=== PATIENT | female | born 1985 | race Caucasian/White ===

== ENCOUNTER 2017-03-09 14:03 | Emergency (ER) | payer BC ==
--- NOTE | 2017-03-09 14:41 | EDM.PDOC ---
ED HPI GENERAL MEDICAL PROBLEM - General Chief Complaint: General Stated Complaint: FLU LIKE SYMPTOMS Time Seen by Provider: 03/09/17 14:39 Source of Information: Reports: Patient History Limitations: Reports: No Limitations - History of Present Illness INITIAL COMMENTS - FREE TEXT/NARRATIVE: HISTORY AND PHYSICAL: []31-year-old female presenting with cough, cold, fever, flu symptoms History of Present Illness: []Patient was shivering last night had sweats today coworkers daughter had influenza Review of Systems: As per history of present illness and below otherwise all systems reviewed and negative. Past medical history: As per history of present illness and as reviewed below otherwise noncontributory. Surgical history: As per history of present illness and as reviewed below otherwise noncontributory. Social history: No reported history of drug or alcohol abuse. Family history: As per history of present illness and as reviewed below otherwise noncontributory. Physical exam: HEENT: Atraumatic, normocehpalic, pupils reactive, negative for conjunctival pallor or scleral icterus, mucous membranes moist, throat clear, neck supple, nontender, trachea midline. Skin is hot and moist. Throat is red. no cervical adenopathy Lungs: Clear to auscultation, breath sounds equal bilaterally, chest non tender. Heart: S1S2, regular, negative for clicks, rubs, or JVD. Abdomen: Soft, nondistended, nontender. Negative for masses or hepatossplenmegaly. Negative for costovertebral tenderness. Pelvis: Stable nontender. Genitourinary: Deferred. Rectal: Deferred Extremities: Atraumatic, negative for cords or calf pain. Neurovascular unremarkable. Neuro: Awake, alert, oriented. Cranial nerves II through XII unremarkable. Cerebellum unremarkable. Motor and sensory unremarkable throughout. Exam nonfocal. Discussed with patient she is positive for influenza A Diagnostics: []Influenza Therapeutics: [] Impression: [ Influenza A] Plan: [ Discharged to home Tamiflu 75 mg twice a day Follow-up with your provider in 3 days] Definitive disposition and diagnosis as appropriate pending reevaluation and review of above. Onset: Sudden body aches Pain Score (Numeric/FACES): 7 - Related Data Allergies Allergy/AdvReac Type Severity Reaction Status Date / Time No Known Allergies Allergy Verified 03/09/17 14:18 Home Meds: Home Meds Vit No.78/Iron/Fa [Prenatabs FA] 1 tab PO DAILY 12/27/14 [History] Oseltamivir [Tamiflu] 75 mg PO BID #10 cap 03/09/17 [Rx] Past Medical History Other Endocrine/Metabolic History: Thyroid has been acting up...they are watching it - Infectious Disease History Infectious Disease History: Reports: Chicken Pox - Past Surgical History Other HEENT Surgeries/Procedures: [place] teeth extracted Other Female Surgeries/Procedures: Prior '2008 Social & Family History - Family History Family Medical History: Noncontributory - Tobacco Use Smoking Status *Q: Never Smoker Second Hand Smoke Exposure: No - Caffeine Use Caffeine Use: Reports: Coffee, Tea - Recreational Drug Use Recreational Drug Use: No Drug Use in Last 12 Months: No ED ROS GENERAL - Review of Systems Review Of Systems: ROS reveals no pertinent complaints other than HPI. ED EXAM, GENERAL - Physical Exam Exam: See Below (see dictation) Course - Vital Signs Last Recorded V/S: Last Vital Signs Temp 37.1 C 03/09/17 14:16 Pulse 131 H 03/09/17 14:16 Resp 20 03/09/17 14:16 BP 116/60 03/09/17 14:16 Pulse Ox 94 L 03/09/17 14:16 Departure - Departure Time of Disposition: 15:19 Disposition: Home, Self-Care 01 Condition: Good Clinical Impression: Influenza - Discharge Information Prescriptions: Oseltamivir [Tamiflu] 75 mg PO BID #10 cap Referrals: Feliz Alvarez MD [Primary Care Provider] - Forms: ED Department Discharge Additional Instructions: The following information is given to patients seen in the emergency department who are being discharged to home. This information is to outline your options for follow-up care. We provide all patients seen in our emergency department with a follow-up referral. The need for follow-up, as well as the timing and circumstances, are variable depending upon the specifics of your emergency department visit. If you don't have a primary care physician on staff, we will provide you with a referral. We always advise you to contact your personal physician following an emergency department visit to inform them of the circumstance of the visit and for follow-up with them and/or the need for any referrals to a consulting specialist. The emergency department will also refer you to a specialist when appropriate. This referral assures that you have the opportunity for followup care with a specialist. All of these measure are taken in an effort to provide you with optimal care, which includes your followup. Under all circumstances we always encourage you to contact your private physician who remains a resource for coordinating your care. When calling for followup care, please make the office aware that this follow-up is from your recent emergency room visit. If for any reason you are refused follow-up, please contact the [facility] emergency department at and asked to speak to the emergency department charge nurse. You have influenza a Tamiflu has been prescribed 3 your pharmacy [id number] medications for discomfort as discussed
[2017-03-09 15:39] VITALS: BP 124/75
== END 2017-03-09 15:37 | disposition home or self-care (01) ==
LOC: MW.ED 14:03
DX: J10.1 Influenza due to other identified influenza virus with other respiratory manifestations (principal)
CPT/HCPCS: 87804; 99283

== ENCOUNTER 2017-04-02 05:13 | Inpatient (IN) | payer BC ==
[2017-04-02] MEDS ORDERED: ceFAZolin 2 GM in Premix Bag 1 BAG IV ONE (05:26)
[2017-04-02] MEDS ORDERED: Sodium Chloride 0.9% 2.5 ML Syringe FLUSH PRN (05:26)
[2017-04-02] MEDS ORDERED: Sodium Chloride 0.9% 10 ML Syringe FLUSH PRN (05:26)
[2017-04-02] MEDS ORDERED: Lactated Ringers 1,000 ML IV SCH ×2 (05:30→09:00)
[2017-04-02] MEDS ORDERED: Oxytocin/0.9 % Sodium Chloride 30 UNIT/500 ML BAG IV SCH (05:30)
[2017-04-02] MEDS ORDERED: Citric Acid/Sodium Citrate Solution 30 ML Cup PO SCH (05:30)
--- NOTE | 2017-04-02 06:42 | PCM.PREANE ---
Preanesthetic Assessment - Anesthesia/Transfusion/Family Hx Anesthesia History: Prior Anesthesia Without Reaction Other Type of Anesthesia Reaction Comment: Denies any known problem in the past Family History of Anesthesia Reaction: No Transfusion History: No Prior Transfusion(s) Intubation History: Unknown - Review of Systems General: No Symptoms Pulmonary: No Symptoms Cardiovascular: No Symptoms Gastrointestinal: No Symptoms Neurological: No Symptoms Other: Reports: None - Physical Assessment Height: 1.57 m Weight: 117.027 kg ASA Class: 2 Mental Status: Alert & Oriented x3 Airway Class: Mallampati = 2 Dentition: Reports: Normal Dentition Thyro-Mental Finger Breadths: 3 Mouth Opening Finger Breadths: 3 ROM/Head Extension: Full Lungs: Clear to Auscultation, Normal Respiratory Effort Cardiovascular: Regular Rate, Regular Rhythm - Lab Values: Laboratory Last Values WBC 10.42 K/uL (4.0-11.0) 04/02/17 05:45 RBC 4.32 M/uL (4.30-5.90) 04/02/17 05:45 Hgb 11.1 g/dL (12.0-16.0) L 04/02/17 05:45 Hct 34.7 % (36.0-46.0) L 04/02/17 05:45 MCV 80.3 fL (80.0-98.0) 04/02/17 05:45 MCH 25.7 pg (27.0-32.0) L 04/02/17 05:45 MCHC 32.0 g/dL (31.0-37.0) 04/02/17 05:45 RDW Std Deviation 47.4 fl (28.0-62.0) 04/02/17 05:45 RDW Coeff of Virgilio 16 % (11.0-15.0) H 04/02/17 05:45 Plt Count 241 K/uL (150-400) 04/02/17 05:45 MPV 10.00 fL (7.40-12.00) 04/02/17 05:45 Nucleated RBC % 0.0 /100WBC 04/02/17 05:45 Nucleated RBCs # 0 K/uL 04/02/17 05:45 - Allergies Allergies/Adverse Reactions: Allergies Allergy/AdvReac Type Severity Reaction Status Date / Time No Known Allergies Allergy Verified 03/27/17 14:15 - Blood Blood Available: No - Anesthesia Plan Pre-Op Medication Ordered: None - Acknowledgements Anesthesia Type Planned: Spinal (general anesthesia back-up plan) Pt an Appropriate Candidate for the Planned Anesthesia: Yes Alternatives and Risks of Anesthesia Discussed w Pt/Guardian: Yes Pt/Guardian Understands and Agrees with Anesthesia Plan: Yes PreAnesthesia Questionnaire HEENT History: Reports: Other (See Below) Other HEENT History: wears glasses/contacts Genitourinary History: Reports: None [employer]ICER History: Reports: , Spontaneous Endocrine/Metabolic History: Reports: Obesity/BMI 30+ Other Endocrine/Metabolic History: Thyroid has been acting up...they are watching it - Infectious Disease History Infectious Disease History: Reports: Chicken Pox - Past Surgical History Head Surgeries/Procedures: Reports: None HEENT Surgical History: Reports: Oral Surgery Female Surgical History: Reports: Section (x2), D&C - SUBSTANCE USE Smoking Status *Q: Never Smoker Tobacco Use Within Last Twelve Months: No Other Tobacco Use Within Last Twelve Months: Smoked on & off for 1 yr, "years ago" Second Hand Smoke Exposure: No Recreational Drug Use History: No - HOME MEDS Home Medications: Home Meds Vit No.78/Iron/Fa [Prenatabs FA] 1 tab PO DAILY 12/27/14 [History] - CURRENT (IN HOUSE) MEDS Current Meds: Current Medications Citric Acid/Sodium Citrate (Bicitra Solution) 30 ml PO .ONCE ALONSO Last Admin: 04/02/17 06:05 Dose: 30 ml Lactated Ringer's (Ringers, Lactated) 1,000 mls @ 500 mls/hr IV .BOLUS ALONSO Last Admin: 04/02/17 05:47 Dose: 500 mls/hr Oxytocin/Sodium Chloride (Oxytocin 30 Unit/500 Ml-Ns) 30 unit in 500 mls @ 250 mls/hr IV TITRATE ALONSO Sodium Chloride (Saline Flush) 10 ml FLUSH ASDIRECTED PRN PRN Reason: Keep Vein Open Sodium Chloride (Saline Flush) 2.5 ml FLUSH ASDIRECTED PRN PRN Reason: Keep Vein Open Discontinued Medications Cefazolin Sodium/Dextrose 2 gm (/ Premix) 50 mls @ 100 mls/hr IV ONETIME ONE Stop: 04/02/17 05:55
[2017-04-02] MEDS ORDERED: ceFAZolin/Dextrose,Iso-Osmotic 2 GM/50 ML Duplex Bag IV ONE (07:20)
[2017-04-02] MEDS ORDERED: Morphine PF 1 MG/ML Amp ONE (07:21)
[2017-04-02] MEDS ORDERED: Oxytocin/0.9 % Sodium Chloride 30 UNIT/500 ML BAG ONE (07:33)
[2017-04-02] MEDS ORDERED: ePHEDrine 50 MG/ML SDV ONE ×2 (08:01→08:03)
[2017-04-02] MEDS ORDERED: Phenylephrine/Normal Saline 100 MCG/ML 10 ML Syringe ONE (08:09)
[2017-04-02] MEDS ORDERED: Ondansetron 4 MG/2 ML SDV ONE (08:23)
[2017-04-02] MEDS ORDERED: Octyl 2-Cyanoacrylate 1 Tube ONE (08:49)
[2017-04-02] MEDS ORDERED: Ondansetron 4 MG/2 ML SDV IV PRN (09:00)
[2017-04-02] MEDS ORDERED: Lanolin 100% Cream 7 GM Tube TOP PRN (09:00)
[2017-04-02] MEDS ORDERED: Bisacodyl 10 MG Supp RECTAL PRN (09:00)
[2017-04-02] MEDS ORDERED: Simethicone 80 MG Tab.Chew PO PRN (09:00)
[2017-04-02] MEDS ORDERED: Aluminum Hydroxide/Magnesium Hydroxide/Simethicone Susp 30 ML Cup PO PRN (09:00)
[2017-04-02] MEDS ORDERED: diphenhydrAMINE 50 MG/ML SDV IVPUSH PRN (09:00)
[2017-04-02] MEDS ORDERED: Acetaminophen/oxyCODONE 325-5 MG Tab PO PRN (09:11)
[2017-04-02] MEDS ORDERED: fentaNYL 100 MCG/2 ML SDV IVPUSH PRN (09:11)
--- NOTE | 2017-04-02 09:12 | PCM.OPNOTE ---
- General Post-Op/Procedure Note Date of Surgery/Procedure: 04/02/17 Operative Procedure(s): Repeat LTCS Findings: Term female APGARs 9, 9 weight 3490 gm. Intact placenta with 3V cord. Normal appearing pelvis Pre Op Diagnosis: 39 week IUP. Previous c section x 2-desires repeat Post-Op Diagnosis: Same Anesthesia Technique: Spinal Primary Surgeon: Vivian Potter Fluid Replacement, Intraop: 2,000 EBL in mLs: 500 Complications: None known Condition: Good Free Text/Narrative:: Dictation [id number]
[2017-04-02] MEDS ORDERED: Naloxone 0.4 MG/ML Syringe IVPUSH PRN (09:13)
[2017-04-02] MEDS: Ketorolac 30 MG/ML SDV IVPUSH SCH ×3 (09:28→21:07)
[2017-04-02] MEDS: Nalbuphine 10 MG/1 ML Vial IVPUSH PRN ×2 (09:41→15:06)
--- NOTE | 2017-04-02 09:48 | PCM.POSTAN ---
POST ANESTHESIA ASSESSMENT - MENTAL STATUS Mental Status: Alert, Oriented - RESPIRATORY Respiratory Status: Respiratory Rate WNL, Airway Patent, O2 Saturation Stable - CARDIOVASCULAR CV Status: Pulse Rate WNL, Blood Pressure Stable - GASTROINTESTINAL GI Status: No Symptoms - POST OP HYDRATION Hydration Status: Adequate & Stable
[2017-04-02] MEDS: Docusate Sodium 100 MG Cap PO SCH ×2 (11:01→21:07)
[2017-04-03] MEDS: Ketorolac 30 MG/ML SDV IVPUSH SCH ×2 (03:14→09:00)
--- NOTE | 2017-04-03 08:00 | PCM48HPAN ---
Post Anesthesia Note - EVALUATION WITHIN 48HRS OF ANESTHETIC Vital Signs in Normal Range: Yes Patient Participated in Evaluation: Yes Respiratory Function Stable: Yes Airway Patent: Yes Cardiovascular Function Stable: Yes Hydration Status Stable: Yes Pain Control Satisfactory: Yes Nausea and Vomiting Control Satisfactory: Yes Mental Status Recovered: Yes Resp Rate: 16
--- NOTE | 2017-04-03 08:14 | OR ---
SURGEON: Vivian Potter M.D. DATE OF PROCEDURE: 04/02/2017 PREOPERATIVE DIAGNOSES: 1. 39 week intrauterine . 2. Previous section x2, desires repeat. POSTOPERATIVE DIAGNOSES: 1. 39 week intrauterine . 2. Previous section x2, desires repeat. PROCEDURE: Repeat low-transverse section. ANESTHESIA: Spinal. ESTIMATED BLOOD LOSS: 500 mL. FLUIDS: 2000 mL of crystalloid. COMPLICATIONS: None known. FINDINGS: Term female, scores are 9 at 1 minute and 9 at 5 minutes, weight of 3490 g, intact placenta, 3-vessel cord. Normal-appearing pelvis overall. DISPOSITION: The patient to PACU. to nursery, stable. DESCRIPTION OF PROCEDURE: Rosalie is a 31-year-old G3, P2, at 39 weeks gestation, presents this morning for scheduled repeat delivery. Risks of the procedure have been discussed with her and proper consent was obtained. The patient was taken to the operating room, where she underwent spinal anesthetic, was placed in the dorsal supine position with leftward tilt, SCDs to lower extremities, Reyna to gravity. She was prepped and draped in usual sterile fashion. Anesthesia was tested and found to be adequate. After being prepped in the usual sterile fashion, anesthesia had been tested. Time-out was performed. A previous Pfannenstiel scar was excised, carried down to level of the rectus fascia, which was incised in midline and lateralized on either side sharply and bluntly. The superior aspect of fascia was tented up, dissected sharply and bluntly away from underlying muscle. In a similar fashion, this was performed on the inferior aspect of the fascia. The rectus muscles were in the midline sharply. Peritoneum was entered, and rectus muscle and peritoneum were lateralized bluntly. The uterine position and position now gently palpated. Self-retaining retractor was gently placed. Uterovesical reflection was visualized. There were some fairly significant blood vessels along the inferior aspect of the vesicular peritoneum. Bladder flap was created and mobilized the bladder away from the lower uterine segment. Low transverse hysterotomy was performed. Uterine cavity was entered with blunt end of scalpel. Hysterotomy was lateralized bluntly. Amniotomy was performed. Clear fluid was returned. Infant's head was delivered from the pelvis. Fundal pressure was applied. The 's head was delivered followed by anterior shoulder, posterior shoulder, and remainder of the body without difficulty. Nuchal cord x2 was reduced manually. The cord was clamped x2 and cut. The 's oropharynx and nares bulb suctioned. was handed off to attending nursing staff. Cord arterial, cord venous, cord blood sampling was obtained. The placenta was now delivered. Uterine cavity was cleared of all clot and debris. Hysterotomy was repaired using 0 Vicryl in continuous running locked fashion beginning laterally on either side in continuous running locked fashion followed by a re-imbricating layer of 0 Vicryl. Hemostasis appeared evident. Posterior aspect of the uterus inspected, no defects or hematomas found to be forming. Regions were well irrigated, suction dried. Uterus returned to abdominal cavity. Colonic gutters were cleared of all clot and debris, well irrigated, suction dried. Hysterotomy was again inspected and found to be hemostatic overall. Self-retaining retractor was gently removed. Bladder blade was placed. Hysterotomy was again inspected and found to be hemostatic. The rectus muscles were reapproximated using 0 Vicryl in inverted mattress suture technique. Anterior aspect of the muscle and posterior aspect of fascia closely inspected. Any areas of oozing were cauterized. The rectus fascia was now reapproximated using 0 Vicryl in continuous running fashion beginning laterally in the side and meeting in the midline. Subcutaneous tissue was well irrigated and suction dried. Any areas of oozing were cauterized. Deep subcutaneous tissue was repaired using 3-0 plain gut in a continuous running fashion. We irrigated the subcutaneous tissue one more time. Any areas of oozing once again cauterized. The skin edges were reapproximated using 3-0 Vicryl on a Darío needle in subcuticular fashion. Dermabond now gently placed. Uterus remained firm. Fundal massage had then performed. Sponge, instrument, needle counts were correct x2. The patient tolerated the procedure well overall. She will go to PACU in stable condition. The infant to nursery. FRANCI / SAMMY /[id number]
--- NOTE | 2017-04-03 08:30 | PCM.PNPP ---
- General Info Date of Service: 04/03/17 Functional Status: Reports: Pain Controlled, Tolerating Diet, Ambulating, Urinating - Review of Systems General: Denies: Fever, Weakness Pulmonary: Denies: Shortness of Breath Cardiovascular: Denies: Chest Pain, Palpitations, Lightheadedness Gastrointestinal: Reports: Flatus. Denies: Diarrhea, Nausea, Vomiting Genitourinary: Denies: Flank Pain Skin: Reports: No Symptoms - General Info Date of Service: 04/03/17 - Patient Data Vital Signs - Most Recent: Last Vital Signs Temp 37.1 C 04/03/17 03:00 Pulse 104 H 04/03/17 03:00 Resp 16 04/03/17 07:59 BP 109/57 L 04/03/17 03:00 Pulse Ox 97 04/03/17 06:09 Weight - Most Recent: 117.027 kg I&O - Last 24 Hours: Intake & Output 04/02/17 04/03/17 04/03/17 22:59 06:59 14:59 Intake Total 1621 Output Total 800 1450 Balance 821 -1450 Lab Results - Last 24 Hours: Laboratory Results - last 24 hr 04/02/17 04/02/17 04/03/17 Range/Units 08:28 10:00 05:15 Hgb 9.3 L (12.0-16.0) g/dL Hct 28.9 L (36.0-46.0) % Cord ABG pH 7.278 (7.18-7.38) Cord ABG Base Excess -4 (-10--2) Cord VBG pH 7.342 (7.25-7.45) Cord VBG Base Excess -6 (-10--2) Screen NEGATIVE (NEGATIVE) RhIG Candidate? YES Rhogam Indicated YES, BABY RH POS H Med Orders - Current: Current Medications Al Hydroxide/Mg Hydroxide (Mag-Al Plus) 30 ml PO Q8H PRN PRN Reason: Heartburn Bisacodyl (Dulcolax) 10 mg RECTAL .ONCE PRN PRN Reason: Constipation Citric Acid/Sodium Citrate (Bicitra Solution) 30 ml PO .ONCE ALONSO Last Admin: 04/02/17 06:05 Dose: 30 ml Diphenhydramine HCl (Benadryl) 25 mg IVPUSH Q6H PRN PRN Reason: Itching or Nausea Docusate Sodium (Colace) 100 mg PO BID [facility] Last Admin: 04/02/17 21:07 Dose: 100 mg Emollient Ointment (Lansinoh Hpa) 0 gm TOP ASDIRECTED PRN PRN Reason: Sore Nipples Fentanyl (Sublimaze) 50 mcg IVPUSH Q30M PRN PRN Reason: Pain (severe 7-10) Stop: 04/03/17 09:12 Lactated Ringer's (Ringers, Lactated) 1,000 mls @ 500 mls/hr IV .BOLUS [facility] Last Admin: 04/02/17 05:47 Dose: 500 mls/hr Oxytocin/Sodium Chloride (Oxytocin 30 Unit/500 Ml-Ns) 30 unit in 500 mls @ 250 mls/hr IV TITRATE [facility] Lactated Ringer's (Ringers, Lactated) 1,000 mls @ 125 mls/hr IV ASDIRECTED [facility] Last Admin: 04/02/17 10:15 Dose: 125 mls/hr Ibuprofen (Motrin) 800 mg PO Q8H PRN PRN Reason: mild pain or fever Ketorolac Tromethamine (Toradol) 30 mg IVPUSH Q6H [facility] Stop: 04/03/17 09:01 Last Admin: 04/03/17 03:14 Dose: 30 mg Nalbuphine HCl (Nubain) 2.5 mg IVPUSH Q3H PRN PRN Reason: Pruritis Stop: 04/03/17 09:14 Last Admin: 04/02/17 15:06 Dose: 2.5 mg Naloxone HCl (Narcan) 0.1 mg IVPUSH ONETIME PRN PRN Reason: RR< 6 WITH STIMULATION Stop: 04/03/17 09:14 Ondansetron HCl (Zofran) 4 mg IV Q4H PRN PRN Reason: Nausea/Vomiting Oxycodone/Acetaminophen (Percocet 325-5 Mg) 1 tab PO Q4H PRN PRN Reason: Pain (moderate 4-6) Oxycodone/Acetaminophen (Percocet 325-5 Mg) 2 tab PO Q4H PRN PRN Reason: Pain (moderate 4-6) Oxycodone/Acetaminophen (Percocet 325-5 Mg) 1 tab PO .Q4H PRN PRN Reason: Breakthrough Pain Stop: 04/03/17 09:11 Simethicone (Simethicone) 80 mg PO Q4H PRN PRN Reason: Gas Sodium Chloride (Saline Flush) 10 ml FLUSH ASDIRECTED PRN PRN Reason: Keep Vein Open Sodium Chloride (Saline Flush) 2.5 ml FLUSH ASDIRECTED PRN PRN Reason: Keep Vein Open Discontinued Medications Cefazolin Sodium/Dextrose (Ancef) Confirm Administered Dose 2 gm IV .STK-MED ONE Stop: 04/02/17 07:21 Ephedrine Sulfate (Ephedrine Sulfate) Confirm Administered Dose 50 mg .ROUTE .STK-MED ONE Stop: 04/02/17 08:02 Ephedrine Sulfate (Ephedrine Sulfate) Confirm Administered Dose 50 mg .ROUTE .STK-MED ONE Stop: 04/02/17 08:04 Cefazolin Sodium/Dextrose 2 gm (/ Premix) 50 mls @ 100 mls/hr IV ONETIME ONE Stop: 04/02/17 05:55 Last Admin: 04/02/17 09:24 Dose: Not Given Oxytocin/Sodium Chloride (Oxytocin 30 Unit/500 Ml-Ns) Confirm Administered Dose 30 unit in 500 mls @ as directed .ROUTE .STK-MED ONE Stop: 04/02/17 07:34 Last Admin: 04/02/17 09:25 Dose: Not Given Morphine Sulfate (Duramorph Pf) Confirm Administered Dose 1 mg .ROUTE .STK-MED ONE Stop: 04/02/17 07:22 Octyl Cyanoacrylate (Dermabond Advance) Confirm Administered Dose 1 applic .ROUTE .STK-MED ONE Stop: 04/02/17 08:50 Ondansetron HCl (Zofran) Confirm Administered Dose 4 mg .ROUTE .STK-MED ONE Stop: 04/02/17 08:24 Phenylephrine HCl (Phenylephrine In Ns 100 Mcg/Ml) Confirm Administered Dose 1 mg .ROUTE .STK-MED ONE Stop: 04/02/17 08:10 - Interaction Infant Disposition, : [place] in Room with Family Infant Interaction: Holding Infant Feeding: Breastfed Infant; Nursed Well Support Person: - Recovery Exam Fundal Tone: Firm Fundal Level: 1 Fingerbreadths Below Umbilicus Fundal Placement: Left Lochia Amount: Small Lochia Color: Rubra/Red Perineum Description: Intact, Minimal Bruising/Swelling Bladder Status: Indwelling Catheter in Place Urinary Elimination: Indwelling Catheter - Exam General: Alert, Oriented Lungs: Normal Respiratory Effort Cardiovascular: Regular Rate, Regular Rhythm GI/Abdominal Exam: Normal Bowel Sounds, Soft. No: Rebound, Tender Skin: Warm, Dry Wound/Incisions: Drainage (small amount of serous drainage). No: Erythema Psy/Mental Status: Alert, Normal Affect - Problem List & Annotations (1) delivery delivered SNOMED Code(s): 518703728 Code(s): O82 - ENCOUNTER FOR DELIVERY WITHOUT INDICATION Status: Acute Current Visit: Yes - Problem List Review Problem List Initiated/Reviewed/Updated: Yes - My Orders Last 24 Hours: My Active Orders 04/02/17 09:00 Notify Provider Intake and Out [RC] ASDIRECTED Notify Provider Vital Signs [RC] ASDIRECTED Acetaminophen/oxyCODONE [Percocet 325-5 MG] 1 tab PO Q4H PRN Acetaminophen/oxyCODONE [Percocet 325-5 MG] 2 tab PO Q4H PRN Alum Hydrox/Mag Hydrox/Simeth [Mag-Al Plus] 30 ml PO Q8H PRN Bisacodyl [Dulcolax] 10 mg RECTAL .ONCE PRN Docusate Sodium [Colace] 100 mg PO BID Ibuprofen [Motrin] 800 mg PO Q8H PRN Ketorolac [Toradol] 30 mg IVPUSH Q6H Lactated Ringers [Ringers, Lactated] 1,000 ml IV ASDIRECTED Lanolin [Lansinoh HPA] See Dose Instructions TOP ASDIRECTED PRN Ondansetron [Zofran] 4 mg IV Q4H PRN Simethicone 80 mg PO Q4H PRN diphenhydrAMINE [Benadryl] 25 mg IVPUSH Q6H PRN Abdominal Binder [OM.PC] Routine Heat Therapy [OM.PC] Routine Ice Therapy [OM.PC] Routine 04/02/17 09:01 Ambulate [RC] PER UNIT ROUTINE Communication Order [RC] PER UNIT ROUTINE Communication Order [RC] PER UNIT ROUTINE Communication Order [RC] Per Unit Routine May Shower [RC] ASDIRECTED RT Incentive Spirometry [RC] Q2HWA Vital Signs [RC] PER UNIT ROUTINE Assess Lochia [WOMSER] Per Unit Routine Assess Uterine Involution [WOMSER] Per Unit Routine Breast Pump [WOMSER] Per Unit Routine Peripheral IV Discontinue [OM.PC] Routine Sequential Compression Device [OM.PC] Per Unit Routine 04/02/17 09:02 Antiembolic Devices [RC] PER UNIT ROUTINE 04/02/17 10:00 SCREEN [BBK] Routine RH IMMUNE GLOBULIN [BBK] Routine RHOGAM, [RHIG WORKUP, ] [BBK] Routine 04/02/17 Lunch Consistent Carbohydrate Diet [DIET] - Assessment Assessment:: POD 1 status post repeat c section - Plan Plan:: Patient is doing well overall--continue cares. Ambulate halls today , may shower. is going well overall.
[2017-04-03] MEDS: Docusate Sodium 100 MG Cap PO SCH ×2 (09:00→21:06)
[2017-04-03] MEDS: Ibuprofen 800 MG Tab PO PRN ×2 (14:48→22:11)
[2017-04-03] MEDS: Acetaminophen/oxyCODONE 325-5 MG Tab PO PRN ×2 (15:41→21:06)
[2017-04-04] MEDS: Acetaminophen/oxyCODONE 325-5 MG Tab PO PRN ×3 (03:37→13:20)
[2017-04-04] MEDS: Docusate Sodium 100 MG Cap PO SCH (08:32)
[2017-04-04 08:51] VITALS: BP 106/67
--- NOTE | 2017-04-04 08:56 | PCM.PNPP ---
- General Info Date of Service: 04/04/17 Functional Status: Reports: Pain Controlled, Tolerating Diet, Ambulating, Urinating - Review of Systems General: Denies: Fever, Weakness Pulmonary: Denies: Shortness of Breath Cardiovascular: Denies: Chest Pain, Palpitations, Lightheadedness Gastrointestinal: Reports: Difficulty Swallowing, Flatus. Denies: Diarrhea, Nausea Genitourinary: Denies: Flank Pain Skin: Reports: No Symptoms - General Info Date of Service: 04/04/17 - Patient Data Vital Signs - Most Recent: Last Vital Signs Temp 36.9 C 04/04/17 08:49 Pulse 84 04/04/17 08:49 Resp 18 04/04/17 08:49 BP 106/67 04/04/17 08:49 Pulse Ox 97 04/04/17 08:49 Weight - Most Recent: 117.027 kg Lab Results - Last 24 Hours: Laboratory Results - last 24 hr 04/02/17 Range/Units 10:00 Screen NEGATIVE (NEGATIVE) RhIG Candidate? YES Rhogam Indicated YES, BABY RH POS H Med Orders - Current: Current Medications Al Hydroxide/Mg Hydroxide (Mag-Al Plus) 30 ml PO Q8H PRN PRN Reason: Heartburn Bisacodyl (Dulcolax) 10 mg RECTAL .ONCE PRN PRN Reason: Constipation Citric Acid/Sodium Citrate (Bicitra Solution) 30 ml PO .ONCE ALONSO Last Admin: 04/02/17 06:05 Dose: 30 ml Diphenhydramine HCl (Benadryl) 25 mg IVPUSH Q6H PRN PRN Reason: Itching or Nausea Docusate Sodium (Colace) 100 mg PO BID [facility] Last Admin: 04/04/17 08:32 Dose: 100 mg Emollient Ointment (Lansinoh Hpa) 0 gm TOP ASDIRECTED PRN PRN Reason: Sore Nipples Lactated Ringer's (Ringers, Lactated) 1,000 mls @ 500 mls/hr IV .BOLUS [facility] Last Admin: 04/02/17 05:47 Dose: 500 mls/hr Oxytocin/Sodium Chloride (Oxytocin 30 Unit/500 Ml-Ns) 30 unit in 500 mls @ 250 mls/hr IV TITRATE ALONSO Lactated Ringer's (Ringers, Lactated) 1,000 mls @ 125 mls/hr IV ASDIRECTED [facility] Last Admin: 04/02/17 10:15 Dose: 125 mls/hr Ibuprofen (Motrin) 800 mg PO Q8H PRN PRN Reason: mild pain or fever Last Admin: 04/03/17 22:11 Dose: 800 mg Ondansetron HCl (Zofran) 4 mg IV Q4H PRN PRN Reason: Nausea/Vomiting Oxycodone/Acetaminophen (Percocet 325-5 Mg) 1 tab PO Q4H PRN PRN Reason: Pain (moderate 4-6) Last Admin: 04/03/17 21:06 Dose: 1 tab Oxycodone/Acetaminophen (Percocet 325-5 Mg) 2 tab PO Q4H PRN PRN Reason: Pain (moderate 4-6) Last Admin: 04/04/17 08:31 Dose: 2 tab Simethicone (Simethicone) 80 mg PO Q4H PRN PRN Reason: Gas Sodium Chloride (Saline Flush) 10 ml FLUSH ASDIRECTED PRN PRN Reason: Keep Vein Open Sodium Chloride (Saline Flush) 2.5 ml FLUSH ASDIRECTED PRN PRN Reason: Keep Vein Open Discontinued Medications Cefazolin Sodium/Dextrose (Ancef) Confirm Administered Dose 2 gm IV .STK-MED ONE Stop: 04/02/17 07:21 Ephedrine Sulfate (Ephedrine Sulfate) Confirm Administered Dose 50 mg .ROUTE .STK-MED ONE Stop: 04/02/17 08:02 Ephedrine Sulfate (Ephedrine Sulfate) Confirm Administered Dose 50 mg .ROUTE .STK-MED ONE Stop: 04/02/17 08:04 Fentanyl (Sublimaze) 50 mcg IVPUSH Q30M PRN PRN Reason: Pain (severe 7-10) Stop: 04/03/17 09:12 Cefazolin Sodium/Dextrose 2 gm (/ Premix) 50 mls @ 100 mls/hr IV ONETIME ONE Stop: 04/02/17 05:55 Last Admin: 04/02/17 09:24 Dose: Not Given Oxytocin/Sodium Chloride (Oxytocin 30 Unit/500 Ml-Ns) Confirm Administered Dose 30 unit in 500 mls @ as directed .ROUTE .STK-MED ONE Stop: 04/02/17 07:34 Last Admin: 04/02/17 09:25 Dose: Not Given Ketorolac Tromethamine (Toradol) 30 mg IVPUSH Q6H ALONSO Stop: 04/03/17 09:01 Last Admin: 04/03/17 09:00 Dose: 30 mg Morphine Sulfate (Duramorph Pf) Confirm Administered Dose 1 mg .ROUTE .STK-MED ONE Stop: 04/02/17 07:22 Nalbuphine HCl (Nubain) 2.5 mg IVPUSH Q3H PRN PRN Reason: Pruritis Stop: 04/03/17 09:14 Last Admin: 04/02/17 15:06 Dose: 2.5 mg Naloxone HCl (Narcan) 0.1 mg IVPUSH ONETIME PRN PRN Reason: RR< 6 WITH STIMULATION Stop: 04/03/17 09:14 Octyl Cyanoacrylate (Dermabond Advance) Confirm Administered Dose 1 applic .ROUTE .STK-MED ONE Stop: 04/02/17 08:50 Ondansetron HCl (Zofran) Confirm Administered Dose 4 mg .ROUTE .STK-MED ONE Stop: 04/02/17 08:24 Oxycodone/Acetaminophen (Percocet 325-5 Mg) 1 tab PO .Q4H PRN PRN Reason: Breakthrough Pain Stop: 04/03/17 09:11 Phenylephrine HCl (Phenylephrine In Ns 100 Mcg/Ml) Confirm Administered Dose 1 mg .ROUTE .STK-MED ONE Stop: 04/02/17 08:10 - Infant Interaction Infant Disposition, : in Room with Family Interaction: Holding Infant Feeding: Breastfed ; Nursed Well Support Person: - Recovery Exam Fundal Tone: Firm Fundal Level: 1 Fingerbreadths Below Umbilicus Fundal Placement: Midline Lochia Amount: Scant Lochia Color: Rubra/Red Perineum Description: Intact, Minimal Bruising/Swelling Bladder Status: Voiding Urinary Elimination: Indwelling Catheter - Exam General: Alert, Oriented Lungs: Normal Respiratory Effort Cardiovascular: Regular Rate, Regular Rhythm GI/Abdominal Exam: Normal Bowel Sounds, Soft Extremities: Pedal Edema (trace). No: Adrian's Sign Skin: Warm, Dry, Intact Wound/Incisions: No Drainage. No: Erythema Psy/Mental Status: Alert, Normal Affect - Problem List & Annotations (1) delivery delivered SNOMED Code(s): 280075402 Code(s): O82 - ENCOUNTER FOR DELIVERY WITHOUT INDICATION Status: Acute Current Visit: Yes - Problem List Review Problem List Initiated/Reviewed/Updated: Yes - My Orders Last 24 Hours: My Active Orders 04/04/17 08:53 Ready for Discharge [RC] PER UNIT ROUTINE - Assessment Assessment:: POD 2 status post repeat c section - Plan Plan:: Patient feels ready to go home today. Infection and bleeding warnings reviewed. Follow up at [facility] 2 and 6 weeks. Discharge instrutions reviewed. Discharge to home today.
== END 2017-04-04 16:20 | disposition home or self-care (01) | DRG 540 ==
LOC: MW.OB 05:13
PROVIDERS: ADMIT Obstetrics & Gynecology; ATTEND Obstetrics & Gynecology
PROC: 10D00Z1 Extraction of Products of Conception, Low, Open Approach (ICD-10-PCS; principal; 2017-04-02)
DX: O34.211 Maternal care for low transverse scar from previous cesarean delivery (principal); O69.1XX0 Labor and delivery complicated by cord around neck, with compression, not applicable or unspecified; Z3A.39 39 weeks gestation of pregnancy; Z37.0 Single live birth
CPT/HCPCS: 01961; 36415; 59025; 82803; 85014; 85018; 85027; 85460; 86850; 86900; 86901; A9270-GY; J0690; J1885; J2274; J2300; J2405; J2790; J7120